=== PATIENT | female | born 1930 | race Caucasian/White ===

== ENCOUNTER → 2018-04-04 | Outpatient (CLI) | payer MEDICARE, BC | LOC: M RAD 13:47 | DX: T82.120A Displacement of cardiac electrode, initial encounter (principal); Z95.4 Presence of other heart-valve replacement; Y92.89 Other specified places as the place of occurrence of the external cause; Y93.89 Activity, other specified; X58.XXXA Exposure to other specified factors, initial encounter; Y99.8 Other external cause status | CPT/HCPCS: 71046 ==